=== PATIENT | female | born 1990 | race Caucasian/White ===

== ENCOUNTER 2020-11-22 11:55 | Outpatient (RCR) | payer OTHER, SELFPAY | END 2020-11-28 23:59 | disposition home or self-care (01) | LOC: SOT 11:55 | PROVIDERS: PCP Family Medicine; Referring Provider Specialist; Visit Provider Specialist | DX: M79.642 Pain in left hand (principal) | CPT/HCPCS: 97022; 97110; 97166 ==

== ENCOUNTER 2020-11-29 06:00 | Outpatient (RCR) | payer OTHER, SELFPAY | END 2020-12-28 23:59 | disposition home or self-care (01) | LOC: SOT 06:00 | PROVIDERS: PCP Family Medicine; Referring Provider Specialist; Visit Provider Specialist | DX: M79.642 Pain in left hand (principal) | CPT/HCPCS: 97022; 97035; 97110 ==

== ENCOUNTER → 2020-12-26 16:02 | Outpatient (BNVA) | payer OTHER, SELFPAY | PROVIDERS: PCP Family Medicine; Visit Provider Specialist | DX: M79.642 Pain in left hand (principal) | CPT/HCPCS: 73130 ==

== ENCOUNTER 2021-04-10 06:00 | Outpatient (RCR) | payer OTHER, SELFPAY | END 2021-04-30 23:59 | disposition home or self-care (01) | LOC: SOT 06:00 | PROVIDERS: PCP Family Medicine; Referring Provider Physician Assistant; Visit Provider Physician Assistant | DX: S69.92XD Unspecified injury of left wrist, hand and finger(s), subsequent encounter (principal); X58.XXXD Exposure to other specified factors, subsequent encounter | CPT/HCPCS: 97110; 97112; 97140; 97166; 97530 ==

== ENCOUNTER 2021-05-01 06:00 | Outpatient (RCR) | payer OTHER, SELFPAY | END 2021-05-30 23:59 | disposition home or self-care (01) | LOC: SOT 06:00 | PROVIDERS: PCP Family Medicine; Referring Provider Physician Assistant; Visit Provider Physician Assistant | DX: S69.92XD Unspecified injury of left wrist, hand and finger(s), subsequent encounter (principal) | CPT/HCPCS: 97110; 97112; 97140; 97530 ==

== ENCOUNTER 2022-03-06 07:56 | Day surgery (SDC) | payer OTHER, SELFPAY ==
[2022-03-05 10:44] VITALS: BMI 36.7
[2022-03-06] VITALS (11 sets, daily range): BP systolic 108–132; BP diastolic 69–96; PULSE 75–104; RESP 16–22; TEMP 36.4–36.7; O2SAT 94–97
--- NOTE | 2022-03-06 08:20 | W.PM.OPSFHP ---
Same Day Surgery H&P Indication for Procedure/HPI DATE OF PROCEDURE: March 06, 2022 CHIEF COMPLAINT/INDICATIONFOR SURGICAL PROCEDURE: cholelithiasis PREOP DIAGNOSIS: Cholelithiasis PLANNED PROCEDURE: Operation Date: 03/06/22 09:25 Proposed Procedures p Lap possible open cholecystectomy 81906,K80.20(Not Applicable) - Roberto Carlos Hernandez MD Medications/Allergies* Home Medications Medication Instructions Recorded Confirmed Type levonorgestrel 20 mcg/24 hours (7 20 mcg INTRAUTERINE DAILY 10/31/20 03/05/22 History yrs) 52 mg intrauterine device (Mirena) Allergies/Adverse Reactions Allergy/AdvReac Type Severity Reaction Status Date / Time hydrocodone Allergy Unknown Verified 03/05/22 11:23 Pertinent History/Comorbid Conditions* Surgical History (Updated 02/18/22 @ 11:44 by Roberto Carlos Hernandez MD) History of hand surgery 2020 Family History (Updated 10/31/20 @ 16:12 by Preethi Taylor LPN) Diabetes Father CAD (coronary artery disease) Father Hypertension Mother Father Social History Smoking and tobacco status: current every day smoker Alcohol intake: current Desire information about alcohol rehabilitation?: No Counseling given: No Pertinent Exam Findings alert, oriented x 3 and regular rate & rhythm Recommendations Surgery/Procedure today Coding Level of Care Code Acute Finisher Card Tender for Milly Goldstein
--- NOTE | 2022-03-06 08:45 | ANES.PREANE2 ---
Pre-Anesthetic Assessment Height/Weight: Height 1.63 m Weight 97.069 kg Preop Diagnosis: cholelithiasis Operation Date: 03/06/22 09:25 Proposed Procedures p Lap possible open cholecystectomy 91673,K80.20(Not Applicable) - Roberto Carlos Hernandez MD Familial anesthetic complications: None Was Beta Adeel taken within 24 hours: N/A Was Clonidine taken within 24 hours: N/A Last intake: Intake Last Liquid Date 03/05/22 Last Liquid Time 18:00 Last Solid Date 03/05/22 Last Solid Time 18:00 Social Tobacco and No alcohol Exam alert, oriented x 3, clear to auscultation bilaterally and regular rate & rhythm Airway Mallampati: Class I Dentition: partials and other (overbite) Comments: Comments: patient wishes to keep partial in place- educated patient about risk of of damage to this hardware during intubation. Metabolic Morbid Obesity Anesthetic Plan ASA status: 2 Anesthesia: General Risk of > 500 ml blood loss (7ml/kg in children): No Medications/Allergies Home Medications Medication Instructions Recorded Confirmed Last Taken Type levonorgestrel 20 mcg/24 hours (7 20 mcg INTRAUTERINE DAILY 10/31/20 03/06/22 03/06/22 History yrs) 52 mg intrauterine device (Mirena) Allergies Allergy/AdvReac Type Severity Reaction Status Date / Time hydrocodone Allergy Unknown Verified 03/05/22 11:23 [facility] Anesthesia Surgical History History of hand surgery 2020 Family History Mother Hypertension Father CAD (coronary artery disease) Diabetes Hypertension Social History Smoking and tobacco status: current every day smoker Alcohol intake: current Desire information about alcohol rehabilitation?: No Counseling given: No Data Anesthesia Cardiac Studies: No Data to Display
[2022-03-06] MEDS: sodium chloride 0.9% 1,000 ML 30 ML IV (09:00)
[2022-03-06 09:05] LABS: OR HCG Qualitative Urine Negative (Negative)
[2022-03-06] MEDS: ceFAZolin 2,000 MG in sodium chloride 0.9% (plus) 50 ML 100 MG IV (09:28)
[2022-03-06] MEDS: fentaNYL 50 mcg/mL INJ 2mL IVP (10:47)
[2022-03-06] MEDS: ondansetron 2 mg/ML SDV 2 mL 4 MG IVP (11:57)
--- NOTE | 2022-03-06 16:35 | ANE.PACU2 ---
Inpatient post-anesthesia follow up: Airway intact: Yes Vital signs: Temperature 97.5 F Pulse Rate 79 Respiratory Rate 18 Blood Pressure 127/84 Pulse Oximetry 97 Oxygen Delivery Me thod Room Air Oxygen Flow Rate Fraction of Inspir ed Oxygen Hydration adequate: Yes Nausea and vomiting: No Pain level: 1 Mental status: Baseline
--- NOTE | 2022-03-07 07:16 | P.OP_ITS ---
Operative Report Date of procedure: March 06, 2022 Pre-op diagnosis: Symptomatic cholelithiasis Post-op diagnosis: Cholelithiasis Procedure done: Laparoscopic cholecystectomy Specimens removed/disposition: Gallbladder Surgeon: Roberto Carlos Hernandez Anesthesia: MAC Condition: stable Disposition: PACU Procedure: The patient was taken to the operating room and was intubated under general anesthesia. After the antibiotic had been administered, the abdomen was prepped and draped in a sterile manner. Using a #15 blade, a 1 centimeter infraumbilical curvilinear incision was made and using an open Annmarie technique the peritoneal cavity was entered. A 10 millimeter port was placed and 15 millimeters of pneumoperitoneum was created. A 10 millimeter, 30 degrees scope was then introduced. Three 5 millimeter ports were placed in the epigastric, midclavicular and the anterior axillary line two fingerbreadths below the costal margin on the right side under the direct visualization. Ratcheted forceps were introduced into the lateral most port and was used to retract the fundus of the gallbladder cephalad and using forceps the infundibulum of the gallbladder was retracted laterally. Using L-hook cautery the peritoneum overlying the Calot's triangle was opened medially and laterally until the cystic duct and the anterior and posterior branch of the cystic artery were skeletonized. Dissecti on was carried along the body of the gallbladder and after ensuring critical view of safety, 4 clips applied on the cystic duct and 3 clips applied on the anterior and posterior branch of the cystic artery and cut leaving, 3 clips on the remaining portion of the duct and 2 clips on the remaining portion of the artery. The rest of the gallbladder was dissected off the liver using L-hook cautery. There was no bleeding or bile leaking noted from the gallbladder fossa and the clips appeared to be in place. An EndoCatch bag was introduced to remove the gallbladder. All the ports were removed under direct visualization and there was no bleeding noted from the port sites. The fascia of the umbilicus was closed using [id number] 0 Vicryl sutures and the subcutaneous tissue was approximated using 3-0 Vicryl sutures. The skin at all four ports were closed using 4-0 Monocryl and Dermabond. A total of 10 millimeters of 0.5% Marcaine was infiltrated around the port sites. The patient was stable throughout the procedure.
== END 2022-03-06 12:04 | disposition home or self-care (01) ==
PROVIDERS: Anesthesiology; PCP Family Medicine; Visit Provider Surgery
PROC: 0FT44ZZ Resection of Gallbladder, Percutaneous Endoscopic Approach (ICD-10-PCS; CPT 47562; principal; 2022-03-06 09:25)
DX: K80.10 Calculus of gallbladder with chronic cholecystitis without obstruction (principal); F17.200 Nicotine dependence, unspecified, uncomplicated; E66.01 Morbid (severe) obesity due to excess calories; Z68.36 Body mass index [BMI] 36.0-36.9, adult
CPT/HCPCS: 47562; 84703; 88304; J1100; J1170; J1885; J2250; J2405; J2704; J2710; J3010; J3490; J7030

== ENCOUNTER 2025-05-11 08:03 | Outpatient (CLI) | payer SELFPAY ==
[2025-05-11 08:55] LABS: HF Add Manual Diff No
[2025-05-11 08:59] LABS: Hematocrit 43.2 % (36-47); Hemoglobin 14.30 g/dL (11.27-16.99); Mean Corpuscular HGB Conc 33.1 g/dL (30-55); Mean Corpuscular Hemoglobin 31.3 pg (27-33); Mean Corpuscular Volume 94.5 fl (85-98); Nucleated Red Blood Cells % 0 %; Platelet Count 314 10^3/cmm (157-399); Red Blood Count 4.57 10^6/uL (3.85-5.65); White Blood Count 8.93 10^3/uL (3.29-11.43)
[2025-05-11 09:24] LABS: Estmated Average Glucose 111; Hemoglobin A1C 5.5 % (4.0-6.0)
[2025-05-11 09:29] LABS: Alanine Aminotransferase 17 U/L (0-33); Albumin Level 4.1 g/dL (3.5-5.2); Alkaline Phosphatase 125 U/L (35-105); Anion Gap 14.4 (5-19); Aspartate Amino Transferase 13 U/L (0-32); Blood Urea Nitrogen 7 mg/dL (6-20); Calcium 9.3 mg/dL (8.5-10.5); Carbon Dioxide 25 mmol/L (22-29); Chloride 105 mmol/L (98-107); Cholesterol 200 mg/dL (0-200); Globulin 3.0 g/dL (1.3-4.6); Glucose 97 mg/dL (65-115); HDL Cholesterol 27 mg/dL (60-100); Osmolality Calculated 288 mOsm/kg (285-295); Potassium 4.4 mmol/L (3.5-5.1); Sodium 140 mmol/L (136-145); Total Protein 7.1 g/dL (6.6-8.7); Triglycerides 193 mg/dL (0-150)
== END 2025-05-11 08:04 | disposition home or self-care (01) ==
PROVIDERS: PCP Family Medicine; Visit Provider Dermatology
DX: Z01.89 Encounter for other specified special examinations (principal)